=== PATIENT | male | born 1990 | race Caucasian/White ===

== ENCOUNTER 2020-04-26 12:09 | Emergency (ER) | payer BC, SELFPAY ==
[2020-04-26 12:17] VITALS: BP 130/84; PULSE 84; RESP 18; TEMP 36.9; O2SAT 99; BMI 25.8
[2020-04-26 12:30] VITALS: BP 130/84; PULSE 84; RESP 18; TEMP 36.9; O2SAT 99; BMI 25.7
--- NOTE | 2020-04-26 13:15 | HMH.EDUTC ---
[facility] [place] Disposition Clinical Impression: Low back pain Qualifiers: Chronicity: unspecified Back pain laterality: midline Sciatica presence: without sciatica Qualified Code(s): M54.5 - Low back pain Disposition: Home, Self-Care Condition on Discharge: Good Instructions: DI for Low Back Pain Additional Instructions: *Etodolac maurilio 6 hours with meal as needed for pain/inflammation *Remember you had a Toradol shot in the clinic today, which is similar to Motrin and Etodolac do not take any more for at least 8 hours *Not additional anti-inflammatory like motrin, aleve, advil and Ibuprofen with the above amount of Etodolac. You can still take Tylenol every 4 hours as needed if you need something else for pain *Ice 20 minutes every 2 hours for the first 48 hours after the initial injury followed by moist heat every 20 minutes 3-4 times a day to affected area *Muscle relaxer (Flexeril) every 8 hours as needed for muscle spasms but remember, it WILL cause drowsiness You cannot take it and drive, operate machinery or care for small children. if you have to work, may take at night before bed *Keep this area active, no movement leads to more stiffness, However take it easy and avoid heavy lifting pushing or pulling *Follow up with you family doctor if no improvement for further treatment Prescriptions: Etodolac [Etodolac 200mg Cap*] 200 mg PO Q6H PRN #20 cap PRN Reason: Moderate Pain Transmission Status: Received by [facility] Cyclobenzaprine HCl [Flexeril 10mg tablet] 10 mg PO TID PRN #15 tab PRN Reason: Muscle Spasm Transmission Status: Received by [facility] Referrals: Augusta Kwok [Primary Care Provider] - As needed Time of Disposition: 13:40 Medical Decision Making - Taurus Inquiry Pt receiving controlled substance: No Taurus was queried for this patient: No Vital Signs: 04/26/20 12:17 04/26/20 12:30 Temperature 98.4 F 98.4 F Temperature Source Oral Oral Pulse Rate [Right Brachial] 84 84 Respiratory Rate 18 18 Blood Pressure [Right Arm] 130/84 130/84 Blood Pressure Mean [Right Arm] 99 99 Blood Pressure Source [Right Arm] Automatic Cuff Automatic Cuff Blood Pressure Position [Right Arm] Sitting Sitting 02 Sat by Pulse Oximetry 99 99 Oxygen Delivery Method Room Air Room Air Orders (Tests/Meds): ED MEDICATIONS Discontinued Medications Generic Name Dose Route Start Last Admin Trade Name Eron PRN Reason Stop Dose Admin Ketorolac Tromethamine 60 mg 04/26/20 13:21 04/26/20 13:35 Ketorolac 60mg/2ml Vial IM 04/26/20 13:22 60 mg ONCE ONE Administration Methylprednisolone Sodium Succinate 125 mg 04/26/20 13:21 04/26/20 13:35 Methylprednisolone Sod Succ 125mg Vial IM 04/26/20 13:22 125 mg ONCE ONE Administration [facility] [place] HPI - General Stated complaint: back pain no AO Time Seen by Provider: 04/26/20 13:15 Mode of Arrival: Ambulatory Source of Information: Patient Limitations: No Limitations Description of Symptoms (Recalled from Triage Doc. by RN): Back pain HEENT Symptoms (Recalled from RN notes): No Resp Symptoms (Recalled from RN notes): No Skin Symptoms (Recalled from RN notes): No MS Symptoms (Recalled from RN notes): Yes Functional Status (Recalled from RN notes): WNL - History of Present Illness Provider Complaint: Patient states that he has back problems State that he reached to get his keys from his back pocket and twisted his back and started having spasms in his lower back area States that happened yesterday and has continued to have pain/spasms Denies loss of control of bowel or bladder - Related Data Previous Rx's Medication Instructions Recorded Cyclobenzaprine HCl [Flexeril 10mg 10 mg PO TID PRN #15 tab 04/26/20 tablet] Etodolac [Etodolac 200mg Cap*] 200 mg PO Q6H PRN #20 cap 04/26/20 Allergies Allergy/AdvReac Type Severity Reaction Status Date / Time No Known Allergies Allergy Verified 04/26/20 13:20 - Worker's Comp Is this a
[2020-04-26 14:10] VITALS: BP 130/84; PULSE 84; RESP 18; TEMP 36.9; O2SAT 99
== END 2020-04-26 14:12 | disposition home or self-care (01) ==
PROVIDERS: Emergency Provider Nurse Practitioner; PCP Family Medicine
DX: M54.5 Low back pain (principal); M62.830 Muscle spasm of back
CPT/HCPCS: 96372; 99201

== ENCOUNTER 2023-01-13 15:05 | Emergency (ER) | payer BC, SELFPAY ==
[2023-01-13 15:07] VITALS: BP 159/95; PULSE 101; RESP 18; TEMP 36.8; O2SAT 98; BMI 25.8
[2023-01-13 15:11] VITALS: BP 159/95; PULSE 83; RESP 14; O2SAT 98
--- NOTE | 2023-01-13 15:21 | XR_ITS ---
PROCEDURE INFORMATION: Exam: XR Chest Exam date and time: 01/13/2023 3:28 PM Age: 32 years old Clinical indication: Cough; Additional info: Cough x1 week, bilateral ronchi TECHNIQUE: Imaging protocol: Radiologic exam of the chest. Views: 2 views. COMPARISON: No relevant prior studies available. FINDINGS: Lungs: Small left lung lingular opacity, nonspecific but can be seen in the setting of atelectasis or pneumonia. Pleural spaces: Unremarkable. No pleural effusion. No pneumothorax. Heart/Mediastinum: Unremarkable. No cardiomegaly. Bones/joints: Unremarkable. IMPRESSION: Small left lung lingular opacity, nonspecific but can be seen in the setting of atelectasis or pneumonia.
--- NOTE | 2023-01-13 15:23 | HMH.EDGENADL ---
Discharge Plan Disposition Patient Disposition: Home, Self-Care Condition: Good Prescriptions Prescriptions: New prednisone 50 mg tablet 50 mg PO DAILY 5 Days Qty: 5 0RF amoxicillin-pot clavulanate 875-125 mg tablet 1 tab PO BID Qty: 20 0RF No Action cyclobenzaprine 10 MG tablet 10 mg PO TID PRN (Reason: Muscle Spasm) Qty: 15 0RF etodolac 200 MG capsule 200 mg PO Q6H PRN (Reason: Moderate Pain) Qty: 20 0RF Referrals Follow up/Referrals: Provider,Referral, MD [Primary Care Provider] - See instructions Activity Restrictions/Add. Instructions Additional Instructions/Restrictions: You were evaluated in the emergency department today and diagnosed with pneumonia. Please chart picker your prescriptions at the pharmacy and take the full course as prescribed. Use your inhaler at home as needed for wheezing and shortness of breath. Follow-up with your primary care provider over the next 4 days for reassessment. Return to the emergency department for any new or worsening symptoms. Clinical Impressions Clinical Impression: Lingular pneumonia Instructions Patient Instructions: DI for Pneumonia -- Adult Discharge ED Provider: Violetta Bob General Adult HPI General Chief complaint: Upper Respiratory Infection Stated complaint: persistant cough, night sweats Time Seen by Provider: 01/13/23 15:19 Mode of Arrival: Ambulatory Source of Information: Patient Limitations: No Limitations Description of Symptoms (Recalled from ER Triage Doc. by RN): Pt stated that he has not been exposed to any sickness. He stated that for two weeks he has has a persistant cough, and the last 3 night has night sweats with no fever. He has a slight fever 3 days ago. No other symptoms. History of Present Illness HPI narrative: This patient is a 32-year-old male who denies significant past medical history presenting to the emergency department for evaluation with concern for cough x2 weeks. He states that he is also been having some night sweats, but no fever he has intermittent left lower rib pain associated with coughing, however it is not present at rest. Nothing seems to make his symptoms better or worse. He denies any true chest pain, shortness of breath, abdominal pain, nausea, vomiting, changes bowel movements, rashes, or swelling. Of note, he is a smoker but quit yesterday. Related Data Previous Rx's Medication Instructions Recorded cyclobenzaprine 10 mg tablet 10 mg PO TID PRN Muscle Spasm #15 04/26/20 tabs etodolac 200 mg capsule 200 mg PO Q6H PRN Moderate Pain 04/26/20 #20 caps amoxicillin 875 mg-potassium 1 tab PO BID #20 tabs 01/13/23 clavulanate 125 mg tablet prednisone 50 mg tablet 50 mg PO DAILY 5 days #5 tabs 01/13/23 Allergies Allergy/AdvReac Type Severity Reaction Status Date / Time No Known Allergies Allergy Verified 04/26/20 13:20 [facility] Disclaimer: The information contained in this section may have been updated after the patient was seen, as this information can be updated by other users. Social History Smoking Status: Former smoker alcohol intake: never current occupational status: other Travel in the last 8 weeks: None ROS Obtained: Yes All systems reviewed & no additional complaints except as documented Physical Exam General General appearance: alert and in no apparent distress Head Head exam: atraumatic and normocephalic Eye Eye exam: Present normal appearance, PERRL and EOMI ENT ENT exam: Present normal exam, normal oropharynx, mucous membranes moist and normal external ear exam Neck Neck exam: Present normal inspection, full ROM and trachea midline; Absent tenderness Chest Chest inspection: Present normal inspection and symmetric chest wall rise; Absent tenderness Respiratory Respiratory exam: Present wheezes; Absent respiratory distress, stridor, accessory muscle use or prolonged expiratory phase Expand
[2023-01-13 15:24] LABS: Coronavirus 19, PCR Not Detected (NotDetected); Influenza A, PCR Not Detected (NotDetected); Influenza B, PCR Not Detected (NotDetected)
[2023-01-13 15:30] VITALS: BP 132/87; PULSE 87; RESP 19; O2SAT 97
--- NOTE | 2023-01-13 15:38 | PC.NURSE ---
Pt gone to RAD via wheelchair
--- NOTE | 2023-01-13 15:39 | PC.NURSE ---
PT returned from RAD
[2023-01-13 16:00] VITALS: BP 130/82; PULSE 84; RESP 20; O2SAT 98
--- NOTE | 2023-01-13 16:17 | PC.NURSE ---
Dr. Bob at to update pt on results
[2023-01-13 16:18] VITALS: BP 130/82; PULSE 91; RESP 16; TEMP 36.8; O2SAT 98
== END 2023-01-13 16:18 | disposition home or self-care (01) ==
PROVIDERS: Emergency Provider Emergency Medicine
DX: J18.9 Pneumonia, unspecified organism (principal); Z87.891 Personal history of nicotine dependence
CPT/HCPCS: 71046; 87636; 99284